=== PATIENT | male | born 1975 | race Caucasian/White ===

== ENCOUNTER 2021-06-29 19:19 | Inpatient (IN) | payer SELFPAY ==
[2021-06-29] MEDS ORDERED: Acetaminophen 650 MG Suppository PR PRN (21:11)
[2021-06-29] MEDS ORDERED: Ondansetron PF 4 MG/2 ML Vial IVP PRN (21:11)
[2021-06-29] MEDS ORDERED: hydrALAZINE 20 MG/ML VIAL SLOW IVP PRN (21:11)
[2021-06-29] MEDS ORDERED: Ondansetron ODT 4 MG TAB PO PRN (21:11)
[2021-06-29 21:27] LABS: Troponin I 0.016 ng/mL (< 0.028)
[2021-06-29 21:40] LABS: SARS-CoV-2 NAA Rapid Test DETECTED (NotDetected)
[2021-06-29 23:45] VITALS: BMI 26.6
[2021-06-30] MEDS: Acetaminophen 325 MG TAB PO PRN ×2 (01:59→21:25)
[2021-06-30 05:26] LABS: Anion Gap 12 mmol/L (10-20); BUN (Urea Nitrogen) 11 mg/dL (8.9-20.6); Calc. Creatinine Clearance 97 mL/min (70-130); Calcium 8.8 mg/dL (7.8-10.44); Carbon Dioxide 22 mmol/L (22-29); Cardiac Risk 4.5 (Less than 4.5); Chloride 108 mmol/L (98-107); Cholesterol 199 mg/dl (< 200 Desired); Glucose 103 mg/dL (70-105); HDL Cholesterol 44 mg/dL (>60 Neg Risk); LDL Cholesterol, Calculated 118 mg/dL; Potassium 3.6 mmol/L (3.5-5.1); Sodium 138 mmol/L (136-145); Triglycerides 186 mg/dL (Less than 150)
[2021-06-30 05:29] LABS: #Basophils 0.1 thou/uL (0.0-0.2); #Eosinphils 0.3 thou/uL (0.0-0.7); #Lymphocytes 2.4 thou/uL (1.20-3.40); #Monocytes 0.7 thou/uL (0.11-0.59); %Basophils 0.6 % (0.0-1.0); %Eosinophils 3.7 % (0.0-10.0); %Lymphocytes 25.1 % (21.0-51.0); %Monocytes 7.1 % (0.0-10.0); %Neutrophils 63.5 % (42.0-75.0); Hemoglobin 15.5 g/dL (14.0-18.0); Mean Corpuscular HGB CONC 33.5 g/dL (32.0-36.0); Mean Corpuscular Hemoglobin 30.1 pg (27.0-31.0); Mean Corpuscular Volume 89.7 fL (78.0-98.0); Platelet Count 264 thou/uL (130-400); RBC Distribution Width 13.2 % (11.5-14.5); Red Blood Cell (RBC) Count 5.16 mill/uL (4.70-6.10); White Blood Cell (WBC) Count 9.4 thou/uL (4.8-10.8)
[2021-06-30] MEDS: Aspirin 81 mg Enteric Coated Tablet PO SCH (08:59)
[2021-06-30] MEDS ORDERED: Lisinopril 20 MG TAB PO SCH (11:30)
[2021-06-30] MEDS ORDERED: Amlodipine 10 MG TAB PO SCH (11:30)
[2021-06-30] MEDS ORDERED: Enoxaparin Sodium 40 MG/0.4 ML SYRINGE SC SCH (11:30)
[2021-06-30] MEDS: Nicotine 14 MG PATCH TD SCH (12:22)
[2021-06-30] MEDS ORDERED: Labetalol HCl 100 MG/20 ML VIAL SLOW IVP PRN (12:52)
[2021-06-30] MEDS: Atorvastatin Calcium 40 MG TAB PO SCH (21:25)
[2021-07-01] MEDS ORDERED: Lisinopril 20 MG TAB PO SCH (09:00)
[2021-07-01] MEDS: Enoxaparin Sodium 40 MG/0.4 ML SYRINGE SC SCH (09:20)
[2021-07-01] MEDS: Aspirin 81 mg Enteric Coated Tablet PO SCH (09:20)
[2021-07-01] MEDS: Lisinopril 20 MG TAB PO SCH (09:20)
[2021-07-01] MEDS: Amlodipine 10 MG TAB PO SCH (09:21)
[2021-07-01] MEDS: Nicotine 14 MG PATCH TD SCH (12:13)
[2021-07-01] MEDS ORDERED: Labetalol HCl 100 MG/20 ML VIAL SLOW IVP PRN (16:15)
[2021-07-01] MEDS: Cyclobenzaprine 10 MG TAB PO PRN (21:43)
[2021-07-01] MEDS: Atorvastatin Calcium 40 MG TAB PO SCH (21:43)
[2021-07-02 08:22] LABS: Hemoglobin 16.4 g/dL (14.0-18.0); Mean Corpuscular HGB CONC 32.8 g/dL (32.0-36.0); Mean Corpuscular Hemoglobin 29.7 pg (27.0-31.0); Mean Corpuscular Volume 90.6 fL (78.0-98.0); Mean Platelet Volume 6.9 fL (7.4-10.4); Platelet Count 227 thou/uL (130-400); RBC Distribution Width 13.3 % (11.5-14.5); Red Blood Cell (RBC) Count 5.51 mill/uL (4.70-6.10); White Blood Cell (WBC) Count 9.6 thou/uL (4.8-10.8)
[2021-07-02 08:42] LABS: Anion Gap 10 mmol/L (10-20); BUN (Urea Nitrogen) 14 mg/dL (8.9-20.6); Calc. Creatinine Clearance 90 mL/min (70-130); Calcium 9.1 mg/dL (7.8-10.44); Carbon Dioxide 27 mmol/L (22-29); Chloride 104 mmol/L (98-107); Glucose 99 mg/dL (70-105); Potassium 4.3 mmol/L (3.5-5.1); Sodium 137 mmol/L (136-145)
[2021-07-02] MEDS: Amlodipine 10 MG TAB PO SCH (10:02)
[2021-07-02] MEDS: Lisinopril 20 MG TAB PO SCH (10:02)
[2021-07-02] MEDS: Enoxaparin Sodium 40 MG/0.4 ML SYRINGE SC SCH (10:02)
[2021-07-02] MEDS: Aspirin 81 mg Enteric Coated Tablet PO SCH (10:03)
[2021-07-02] MEDS: Nicotine 14 MG PATCH TD SCH (12:56)
[2021-07-02] MEDS: Atorvastatin Calcium 40 MG TAB PO SCH (21:13)
[2021-07-02] MEDS: Cyclobenzaprine 10 MG TAB PO PRN (21:13)
[2021-07-03 07:02] LABS: Hemoglobin 16.3 g/dL (14.0-18.0); Mean Corpuscular HGB CONC 32.3 g/dL (32.0-36.0); Mean Corpuscular Hemoglobin 29.5 pg (27.0-31.0); Mean Corpuscular Volume 91.4 fL (78.0-98.0); Mean Platelet Volume 7.2 fL (7.4-10.4); Platelet Count 231 thou/uL (130-400); RBC Distribution Width 13.5 % (11.5-14.5); Red Blood Cell (RBC) Count 5.52 mill/uL (4.70-6.10); White Blood Cell (WBC) Count 8.2 thou/uL (4.8-10.8)
[2021-07-03 07:17] LABS: Anion Gap 13 mmol/L (10-20); BUN (Urea Nitrogen) 15 mg/dL (8.9-20.6); Calc. Creatinine Clearance 93 mL/min (70-130); Calcium 9.2 mg/dL (7.8-10.44); Carbon Dioxide 25 mmol/L (22-29); Chloride 105 mmol/L (98-107); Glucose 91 mg/dL (70-105); Potassium 3.9 mmol/L (3.5-5.1); Sodium 139 mmol/L (136-145)
[2021-07-03] MEDS: Aspirin 81 mg Enteric Coated Tablet PO SCH (09:07)
[2021-07-03] MEDS: Amlodipine 10 MG TAB PO SCH (09:07)
[2021-07-03] MEDS: Enoxaparin Sodium 40 MG/0.4 ML SYRINGE SC SCH (09:08)
[2021-07-03] MEDS: Lisinopril 20 MG TAB PO SCH (09:08)
[2021-07-03 12:09] VITALS: BP 166/105; TEMP 98.1
[2021-07-03] MEDS: Nicotine 14 MG PATCH TD SCH (12:38)
== END 2021-07-03 16:04 | disposition home or self-care (01) | DRG 64 ==
LOC: ERS 19:19 → NEURO 21:19
PROVIDERS: ADMIT Student in an Organized Health Care Education/Training Program; ATTEND Internal Medicine
PROC: 8E0ZXY6 Isolation (ICD-10-PCS; principal; 2021-06-29)
DX: I63.81 Other cerebral infarction due to occlusion or stenosis of small artery (principal); U07.1 COVID-19; G81.94 Hemiplegia, unspecified affecting left nondominant side; I16.1 Hypertensive emergency; I10 Essential (primary) hypertension; F17.210 Nicotine dependence, cigarettes, uncomplicated; R29.703 NIHSS score 3; N52.9 Male erectile dysfunction, unspecified; Z71.6 Tobacco abuse counseling; Z91.14 Patient's other noncompliance with medication regimen; Z79.899 Other long term (current) drug therapy
CPT/HCPCS: 36415; 70496; 70498; 70551; 80048; 80061; 82088; 84244; 85025; 85027; 93306; 96374; J1650; U0002